=== PATIENT | female | born 1965 | race Caucasian/White ===

== ENCOUNTER 2018-06-28 07:50 | Day surgery (SDC) | payer BC, OTHER ==
[2018-06-28] MEDS ORDERED: COCAINE HCL 4% TOPICAL SOLN 4 ML ONE (08:16)
[2018-06-28] MEDS ORDERED: OXYMETAZOLINE HCL 0.05% NASAL SPRAY 15 ML BOTTLE ONE ×2 (08:16→09:39)
[2018-06-28] MEDS ORDERED: LIDOCAINE 2%/EPINEPHRINE INJ 1.7 ML CARTRIDGE ONE (08:17)
[2018-06-28] MEDS ORDERED: CEFAZOLIN 2 GM/D5W RTU 2 GM/50 ML RTUPB IV PRN (08:25)
[2018-06-28] MEDS ORDERED: MIDAZOLAM 2 MG/2 ML INJ ONE (08:38)
[2018-06-28] MEDS ORDERED: ONDANSETRON HCL INJ/PF 4 MG/2 ML SDV ONE (08:38)
[2018-06-28] MEDS ORDERED: ACETAMINOPHEN 1,000 MG/100 ML RTUPB IV ONE (08:39)
[2018-06-28] MEDS ORDERED: SUCCINYLCHOLINE CHLORIDE INJ 200 MG/10 ML VIAL ONE (08:39)
[2018-06-28] MEDS ORDERED: FENTANYL CITRATE INJ/PF 100 MCG/2 ML AMPUL ONE (08:39)
[2018-06-28] MEDS ORDERED: PROPOFOL INJ 200 MG/20 ML VIAL IV ONE (08:39)
[2018-06-28] MEDS ORDERED: HYDROMORPHONE HCL INJ/PF 2 MG/ML AMPULE ONE (08:39)
[2018-06-28] MEDS ORDERED: DEXAMETHASONE SOD PHOS INJ 10 MG/1 ML VIAL ONE (08:39)
--- NOTE | 2018-06-28 10:58 | SURGICARE OPERATIVE REPORT E ---
[facility] Operative Report NAME: SAJAN YANCEY AGE: 52Y DATE OF SURGERY: 06/28/2018 ROOM: HISTORY: A 52-year-old female presents with a lesion involving her left nasal mucosa. Presents today for a biopsy of that left nasoseptal mucosal lesion. Informed consent was obtained from the patient. PREOPERATIVE DIAGNOSIS: LESION, LEFT NASOSEPTAL MUCOSA. POSTOPERATIVE DIAGNOSIS: LESION, LEFT NASOSEPTAL MUCOSA. OPERATION: Excisional biopsy, left septal mucosal lesion. SURGEON: EARL CANTRELL MD ANESTHESIA: General by endotracheal intubation. DESCRIPTION OF PROCEDURE: After receiving informed consent from the patient, she was taken to the operating room and placed supine on the operating room table. After successful induction intubation by anesthesia, a pledget soaked with 4% cocaine placed into that left nasal cavity for approximately 5 minutes, after which time it was withdrawn and then the nasal septum on the left side was injected with 2% Xylocaine and 100,000 epinephrine. Pledgets were replaced. Patient was then prepped and draped in sterile fashion. The pledgets were removed. A 15-blade was used to make an incision along the anterior nasal mucosa. Using Buchanan elevator, a mucoperichondrial flap was elevated posteriorly past the lesion. It should be noted that towards the inferior portion of the lesion, there was no intervening cartilage. It was mucosa on mucosa. Next, taking a pair of scissors, a cut was made inferiorly and superiorly and then posteriorly to remove this nasal septal lesion. This will be sent for permanent histopathologic analysis. Inspection of the area again reveals that it appeared that the septal cartilage in the area of that mucosal lesion had been eroded. There was no intervening cartilage. Next, after the lesion was removed, hemostasis was obtained topically with pledgets soaked with Afrin. Next, a Miragel absorbable packing was then placed over that area and coated with Afrin nasal spray. The patient was then given back to Anesthesia, who successfully extubated the patient without any complications. The estimated blood loss about 5 mL; fluids 200 mL crystalloid. Patient was then transferred to the Postanesthesia Care Unit in stable condition, spontaneous respirations, no complications. DICTATING PHYSICIAN: EARL CANTRELL M.D. [id number] PHY#: [id number] ID: [id number] JOB#: [id number] ACCT: [id number] cc:EARL CANTRELL MD >
== END 2018-06-28 10:48 | disposition home or self-care (01) ==
LOC: SC 07:50
PROVIDERS: ATTEND Otolaryngology
DX: J34.89 Other specified disorders of nose and nasal sinuses (principal); K21.9 Gastro-esophageal reflux disease without esophagitis; Z79.899 Other long term (current) drug therapy
CPT/HCPCS: 88305 ×2; 30100; J2250; J3490 ×3; J3010; J0330; J2405; J2704; J1100; J0690; J0131; 160; J1170